=== PATIENT | female | born 1950 | race Caucasian/White ===

== ENCOUNTER 2017-03-21 08:00 | Outpatient (CLI) | payer MEDICARE ==
[2017-03-21 19:07] LABS: BASOPHILS # (AUTO) 0.1 10^3/uL (0.0-0.1); BASOPHILS % (AUTO) 1.1 %; EOSINOPHILS % (AUTO) 17.6 %; HCT - HEMATOCRIT 43.7 % (37.0-47.0); HGB - HEMOGLOBIN 15.5 g/dL (12.0-16.0); LYMPHOCYTES % (AUTO) 16.4 %; MEAN CORPUSCULAR HGB CONC 35.4 g/dL (32.0-36.0); MEAN CORPUSCULAR VOLUME 98.7 fL (81.0-99.0); MEAN PLATELET VOLUME 8.7 fL (7.9-10.8); MONOCYTES # (AUTO) 0.4 10^3/uL (0.0-1.0); MONOCYTES % (AUTO) 6.1 %; NEUTROPHILS # (AUTO) 3.4 10^3/uL (1.5-6.6); NEUTROPHILS % (AUTO) 58.8 %; RED BLOOD COUNT 4.42 10^6/uL (4.20-5.40); RED CELL DISTRIBUTION WIDTH 13.3 % (12.0-15.0); UNCORRECTED WHITE BLOOD COUNT 5.8 x10^3/uL; WHITE BLOOD COUNT 5.8 x10^3/uL (4.8-10.8)
[2017-03-21 19:40] LABS: THYROID STIMULATING HORMONE 1.3 uIU/mL (0.34-5.60)
[2017-03-21 19:44] LABS: FERRITIN 163.9 ng/mL (11.0-306.8)
[2017-03-21 19:47] LABS: ALBUMIN/GLOBULIN RATIO 1.8 (1.0-2.2); BILIRUBIN,TOTAL 0.9 mg/dL (0.2-1.0); CALCIUM 9.7 mg/dL (8.5-10.3); CREATININE 0.7 mg/dL (0.4-1.0); TOTAL PROTEIN 6.9 g/dL (6.7-8.2)
[2017-03-22 14:21] LABS: TEST RESULT REPORT (())
[2017-03-22 14:22] LABS: TEST RESULT REPORT (())
== END 2017-03-21 08:01 | disposition home or self-care (01) ==
LOC: LAB.N 08:00
PROVIDERS: ATTEND Physician Assistant
DX: R21 Rash and other nonspecific skin eruption (principal); L29.8 Other pruritus
CPT/HCPCS: 36415; 80053; 81599; 82728; 82785; 83540; 84439; 84443; 84466; 85025; 86003; 86803; 87340

== ENCOUNTER 2017-03-23 08:00 | Outpatient (CLI) | payer MEDICARE | END 2017-03-23 08:01 | disposition home or self-care (01) | LOC: LAB.R 08:00 | PROVIDERS: ATTEND Physician Assistant | DX: R21 Rash and other nonspecific skin eruption (principal); L29.8 Other pruritus | CPT/HCPCS: 87177; 87209 ==

== ENCOUNTER 2019-12-10 17:14 | Emergency (ER) | payer MEDICARE ==
--- NOTE | 2019-12-10 18:14 | ED Physician Documentation ---
PD HPI SKIN - Stated complaint Stated Complaint: RASH - Chief complaint Chief Complaint: General - History obtained from History obtained from: Patient - History of Present Illness Timing - onset: How many weeks ago (3) Timing - duration: Weeks (3) Timing - details: Gradual onset, Still present Location: Scalp, Neck, Back, RUE, LUE Quality / character: Itchy, Discolored Improved by: Benadryl Associated symptoms: Headache. No: Fever, Myalgias, Joint pain, Facial swelling, Dyspnea, Abd pain, N/V/D, Urinary sx Contributing factors: Other (son was visiting and quite messy.) Similar symptoms before: Has not had sx before Recently seen: Clinic - Additional information Additional information: 69-year-old female has developed red itchy rash to both of her forearms around her neck and to her lower back. She states this started about 3 weeks ago it is progressed and has become more itchy. It has spread. She initially had some of this in her scalp and she was given some ketoconazole shampoo. This does not seem to be helping. She did have a son come to visit during the coronavirus lockdown and she indicates that his living quarters demonstrated poor hygiene and she is still cleaning the area. Her now has a spot on his forearm that is beginning to itch and is red. Review of Systems Constitutional: denies: Fever Eyes: denies: Decreased vision Ears: denies: Ear pain Nose: denies: Rhinorrhea / runny nose, Congestion Throat: denies: Sore throat Cardiac: denies: Chest pain / pressure, Palpitations Respiratory: denies: Dyspnea, Cough GI: denies: Abdominal Pain, Nausea, Vomiting : denies: Dysuria, Frequency Skin: reports: Rash Musculoskeletal: reports: Neck pain. denies: Back pain, Extremity pain Neurologic: reports: Headache. denies: Generalized weakness, Focal weakness, Numbness, Head injury, LOC PD PAST MEDICAL HISTORY - Present Medications Home Medications: Ambulatory Orders Medication Instructions Recorded Confirmed Permethrin [Elimite] 30 gm TP ONCE #60 gm 12/10/19 - Allergies Allergies/Adverse Reactions: Allergies Allergy/AdvReac Type Severity Reaction Status Date / Time No Known Drug Allergies Allergy Verified 12/10/19 17:38 PD ED PE NORMAL - Vitals Vital signs reviewed: Yes (hypertensive ) - General General: Alert and oriented X 3, No acute distress, Well developed/nourished - HEENT HEENT: Atraumatic, PERRL, EOMI - Neck Neck: Supple, no meningeal sign, No bony TTP, Other (At the base of the neck there are erythematous plaques some of them are excoriated there is some tenderness associated with it the appearance is non-specific. ) - Respiratory Respiratory: No respiratory distress - Derm Derm: Normal color, Warm and dry, Other (Over the forearms dorsally bilaterally there is erythematous plaque-like areas with excoriation nonspecific in appearance. 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, No motor deficit, No sensory deficit, Normal speech Eye Opening: Spontaneous Motor: Obeys Commands Verbal: Oriented GCS Score: 15 - Psych Psych: Normal mood, Normal affect Results - Vitals Vitals: Vital Signs - 24 hr 12/10/19 17:38 Temperature 36.8 C Heart Rate 67 Respiratory 16 Rate Blood Pressure 127/95 H O2 Saturation 100 Oxygen O2 Source Room air PD MEDICAL DECISION MAKING - ED course Complexity details: reviewed old records, considered differential, d/w patient ED course: 69-year-old female with a progressing erythematous macular rash of several weeks duration that is intensely pruritic. Her case is consistent with scabies infestation. In addition she has a who is now beginning to develop symptoms. I discussed the natural course of scabies infestation and the requirements of treatment. Departure - Departure Disposition: 01 Home, Self Care Clinical Impression: Scabies Condition: Stable Instructions: ED Scabies Follow-Up: [facility] [Provider Group] Prescriptions: Permethrin [Elimite] 30 gm TP ONCE #60 gm
[2019-12-10 18:32] VITALS: BP 122/65
== END 2019-12-10 18:32 | disposition home or self-care (01) ==
LOC: ED 17:14
DX: B86 Scabies (principal)
CPT/HCPCS: 99282; 99284

== ENCOUNTER 2023-11-18 21:47 | Outpatient (CLI) | payer MEDICARE | END 2023-11-18 23:59 | disposition critical access hospital (66) | LOC: EMS 21:47 | DX: H57.12 Ocular pain, left eye (principal); X58.XXXA Exposure to other specified factors, initial encounter | CPT/HCPCS: A0425; A0429 ==

== ENCOUNTER 2023-11-18 22:09 | Emergency (ER) | payer MEDICARE ==
--- NOTE | 2023-11-19 00:36 | ED Physician Documentation ---
PD HPI HEENT - Stated complaint Stated Complaint: EYE PX - Chief complaint Chief Complaint: Heent - History obtained from History obtained from: Patient - Additional information Additional information: The patient comes to the emergency department chief complaint of left eye pain after accidentally getting her ketoconazole shampoo in her eye while washing her hair. She states she washed her eye out copiously with water at home but it was still burning, so she decided to come in. PD PAST MEDICAL HISTORY - Past Medical History Past Medical History: Yes - Present Medications Home Medications: Ambulatory Orders Medication Instructions Recorded Confirmed Permethrin [Elimite] 30 gm TP ONCE #60 gm 12/10/19 Ketoconazole [Nizoral A-D] 11/18/23 - Allergies Allergies/Adverse Reactions: Allergies Allergy/AdvReac Type Severity Reaction Status Date / Time No Known Drug Allergies Allergy Verified 11/18/23 22:23 - Social History Does the pt smoke?: No Smoking Status: Never smoker Does the pt drink ETOH?: No Does the pt have substance abuse?: No - Immunizations Immunizations are current?: Yes PD ED PE NORMAL - Vitals Vital signs reviewed: Yes - General General: Alert and oriented X 3, No acute distress, Well developed/nourished - HEENT HEENT: Atraumatic, PERRL, EOMI, Moist mucous membranes, Other (Mild conjunctival injection of left eye. No foreign bodies. pH about 7 with color change paper. Fluorescein exam is negative. ) - Neck Neck: Supple, no meningeal sign - Respiratory Respiratory: No respiratory distress - Derm Derm: Warm and dry - Extremities Extremities: No deformity - Neuro Neuro: Alert and oriented X 3 - Psych Psych: Normal mood, Normal affect Results - Vitals Vitals: Oxygen O2 Source Room air PD Medical Decision Making - ED course Complexity details: considered differential, d/w patient, d/w family ED course: The patient's eye pH was neutral and she did not have any other concerning findings on exam. She stated her vision was only slightly more blurry than usual [place] she was stable for discharge home. She has already copiously irrigated her eye at home and is beginning to feel better. We have discussed the usual indications for follow-up and return. Departure - Departure Disposition: 01 Home, Self Care Clinical Impression: Chemical conjunctivitis of left eye Condition: Stable Instructions: ED Chemical Conjunctivitis Comments: Your eye pH looks good and your dye test does not show any scratches, foreign material, or other concerns. Most likely, your eye is just irritated from the chemicals in the ketoconazole shampoo and this will be expected to clear up over the next 24 hours. You may take ibuprofen and Tylenol as needed for the discomfort. Forms: PCP List Discharge Date/Time: 11/19/23 01:25
[2023-11-19] MEDS: ACETAMINOPHEN 325 MG TABLET PO STA (01:02)
[2023-11-19] MEDS: IBUPROFEN 600 MG TABLET PO STA (01:02)
[2023-11-19 01:59] VITALS: BP 168/74; O2SAT 100
== END 2023-11-19 01:25 | disposition home or self-care (01) ==
LOC: EDUNIT# → ED 22:09
DX: H10.212 Acute toxic conjunctivitis, left eye (principal); T49.0X5A Adverse effect of local antifungal, anti-infective and anti-inflammatory drugs, initial encounter; W44.8XXA Other foreign body entering into or through a natural orifice, initial encounter; Y93.E1 Activity, personal bathing and showering
CPT/HCPCS: 99283; 99284; A9270